=== PATIENT | female | born 1955 | race Caucasian/White ===

== ENCOUNTER → 2016-07-04 | Outpatient (REF) ==
--- NOTE | 2016-07-05 02:56 | REP ---
Clinical: Pain and disability. Technique: AP, lateral, and coned-down views of the lumbosacral spine. Findings: Age-related osteopenia and moderate multilevel degenerative changes include endplate sclerosis with disc space narrowing and hypertrophic facet changes. Findings are most pronounced at the L5-S1 level as well as the L3-4 level. No acute fracture / compression injury or subluxation appreciated. Impression: Moderate multilevel degenerative changes. Signed by Ernie Turner MD 07/05/2016 02:47 A
== END ==
LOC: M SMT 10:44
PROVIDERS: ATTEND Internal Medicine
DX: Z02.71 Encounter for disability determination (principal)

== ENCOUNTER → 2016-10-26 | Outpatient (RCR) | payer BC | LOC: M PR 10-02 08:20 | PROVIDERS: ATTEND Internal Medicine Pulmonary Disease | DX: Z51.89 Encounter for other specified aftercare (principal); J43.2 Centrilobular emphysema ==

== ENCOUNTER 2016-11-02 15:27 | Outpatient (RCR) | payer BC | END 2016-11-25 | LOC: M PR 15:27 | PROVIDERS: ATTEND Internal Medicine Pulmonary Disease | DX: Z51.89 Encounter for other specified aftercare (principal); J43.2 Centrilobular emphysema ==

== ENCOUNTER 2016-11-06 10:00 | Outpatient (RCR) | payer BC, SELFPAY | END 2016-11-25 | LOC: M CR 10:00 | PROVIDERS: ATTEND Internal Medicine Pulmonary Disease | DX: Z51.89 Encounter for other specified aftercare (principal); J43.2 Centrilobular emphysema ==

== ENCOUNTER → 2017-12-06 | Outpatient (CLI) | payer BC | LOC: M SMT 14:03 | DX: R05 Cough (principal); R06.00 Dyspnea, unspecified; J44.9 Chronic obstructive pulmonary disease, unspecified; J98.4 Other disorders of lung | CPT/HCPCS: 71046 ==

== ENCOUNTER → 2018-05-09 | Outpatient (CLI) | payer BC ==
--- NOTE | 2018-05-10 02:50 | REP ---
Clinical: COPD. Technique: PA and lateral. Comparison: 12/06/2017. Findings: Lung milan demonstrate chronic stable interstitial changes. The mediastinum and cardiac silhouette are normal. Skeletal structures are intact. Evidence of prior thyroid surgery. Impression: Chronic changes related to COPD and emphysematous disease. No obvious acute process. Electronically Signed by Ernie Turner MD 05/10/2018 02:42 A
== END ==
LOC: M SMT 10:10
PROVIDERS: ATTEND Internal Medicine Pulmonary Disease
DX: J44.1 Chronic obstructive pulmonary disease with (acute) exacerbation (principal); R09.02 Hypoxemia; Z87.891 Personal history of nicotine dependence

== ENCOUNTER → 2019-01-16 | Outpatient (CLI) | payer BC ==
--- NOTE | 2019-01-16 17:25 | REP ---
Chest x-ray: Two views. History: Cough. Comparison chest x-ray: May 09, 2018. Findings: The lungs are quite hyperinflated consistent with COPD as before. There is linear fibrosis in the right lower lobe. There is plate-like atelectasis versus linear fibrosis in the lingular segment of the left upper lobe. This is new when compared with the May 09, 2018 study favoring atelectasis. No acute infiltrate is seen. There is an old healed rib fracture on the right. Heart is not enlarged. There are surgical clips in the soft tissues of the neck bilaterally unchanged. Impression: Hyperinflation consistent with COPD. Right base linear fibrosis. Lingular plate-like atelectasis versus scarring. No definite focal infiltrate. Electronically Signed by Deandre Narayan MD 01/16/2019 05:16 P
== END ==
LOC: M ADAMS 16:34
PROVIDERS: ATTEND Physician Assistant
DX: R91.8 Other nonspecific abnormal finding of lung field (principal); J84.10 Pulmonary fibrosis, unspecified

== ENCOUNTER → 2019-01-20 | Outpatient (CLI) | payer BC ==
--- NOTE | 2019-01-20 13:57 | REP ---
Clinical: History of chronic obstructive pulmonary disease with acute exacerbation. Technique: PA and lateral. Comparison: 01/16/2019. Findings: Diffuse chronic COPD and emphysematous changes with scattered fibrosis and scarring noted. No focal consolidation. No effusion. No pneumothorax. Cardiac silhouette is normal. Skeletal structures intact. Impression: Advanced COPD/emphysematous changes. No focal consolidation. Electronically Signed by Ernie Turner MD 01/20/2019 01:49 P
== END ==
LOC: M ADAMS 13:15
PROVIDERS: ATTEND Physician Assistant
DX: J44.0 Chronic obstructive pulmonary disease with (acute) lower respiratory infection (principal)

== ENCOUNTER → 2019-01-20 | Outpatient (REF) | payer BC | LOC: M LAB REF 16:39 | PROVIDERS: ATTEND Physician Assistant | DX: J44.0 Chronic obstructive pulmonary disease with (acute) lower respiratory infection (principal); R05 Cough; R50.9 Fever, unspecified ==

== ENCOUNTER → 2019-01-20 | Outpatient (CLI) | payer BC ==
[2019-01-20 14:36] LABS: BASO # 0.1 10^3/uL (0.0-0.2); BASO % 0.8 % (0.0-1.0); EOS # 0.1 10^3/uL (0.0-0.5); EOS % 0.9 % (0.0-3.0); HEMATOCRIT 39.3 % (36.0-47.0); HEMOGLOBIN 13.2 g/dl (12.0-15.5); LYMPH # 1.6 10^3/uL (1.5-5.0); LYMPH % 18.3 % (24.0-44.0); MEAN CORPUSCULAR HEMOGLOBIN 30.5 pg (27.0-33.0); MEAN CORPUSCULAR HGB CONC 33.6 g/dl (32.0-36.5); MEAN CORPUSCULAR VOLUME 90.8 fl (80.0-96.0); MONO # 1.3 10^3/uL (0.0-0.8); MONO % 14.8 % (0.0-5.0); NEUTROPHILS # 5.4 10^3/uL (1.5-8.5); NEUTROPHILS % 64.1 % (36.0-66.0); PLATELET COUNT, AUTOMATED 365 10^3/uL (150-450); RED BLOOD COUNT 4.33 10^6/uL (4.00-5.40); WHITE BLOOD COUNT 8.5 10^3/uL (4.0-10.0)
== END ==
LOC: M LABDRWAD 13:18
PROVIDERS: ATTEND Physician Assistant
DX: J18.9 Pneumonia, unspecified organism (principal)

== ENCOUNTER → 2019-07-29 | Outpatient (CLI) | payer MEDICARE ==
--- NOTE | 2019-07-29 16:50 | REP ---
REASON FOR EXAM: Followup. All priors are reviewed, the latest 02/06/2019. The mediastinum and pulmonary carmen are unchanged. There are no pleural or pericardial effusions. The imaged osseous structures and imaged upper abdomen are unchanged. Evaluation of the lung milan again shows lung field hyperexpansion and chronic scattered asymmetric densities. The opacities seen previously in the left lower lobe have resolved. There is a new wedge-shaped opacity in the inferior right middle lobe with air bronchograms. There are no new nodules. There is cylindrical bronchiectasis, status quo. IMPRESSION: 1. Chronic lung field changes, as described above. 2. Improved asymmetric and patchy left lower lobe opacities. 3. New wedge-shaped right middle lobe opacity, as described above, likely representing subsegmental atelectasis. 4. Other findings as described above. Electronically Signed by Dhruv Jenkins DO 07/30/2019 11:18 A
== END ==
LOC: M RAD 14:12
PROVIDERS: ATTEND Internal Medicine Pulmonary Disease
DX: R91.8 Other nonspecific abnormal finding of lung field (principal); J47.9 Bronchiectasis, uncomplicated

== ENCOUNTER → 2022-01-23 | Outpatient (CLI) | payer MEDICARE | LOC: M PLARAD 08:33 | PROVIDERS: ATTEND Internal Medicine Pulmonary Disease | DX: R91.1 Solitary pulmonary nodule (principal) | CPT/HCPCS: 78815; A9552 ==

== ENCOUNTER → 2024-04-02 | Outpatient (CLI) | payer MEDICARE | LOC: M PLAIMG 09:19 | PROVIDERS: ATTEND Internal Medicine Pulmonary Disease | DX: R05.9 Cough, unspecified (principal) ==

== ENCOUNTER → 2024-04-29 | Outpatient (CLI) | payer MEDICARE | LOC: M PLAIMG 10:25 | PROVIDERS: ATTEND Internal Medicine Pulmonary Disease | DX: R91.8 Other nonspecific abnormal finding of lung field (principal) ==

== ENCOUNTER → 2024-09-18 | Outpatient (CLI) | payer MEDICARE | LOC: M PLAIMG 08:38 | PROVIDERS: ATTEND Internal Medicine Pulmonary Disease | DX: R91.8 Other nonspecific abnormal finding of lung field (principal) ==

== ENCOUNTER → 2024-09-18 | Outpatient (CLI) | payer MEDICARE | LOC: M WHC 08:36 | DX: Z13.820 Encounter for screening for osteoporosis (principal); M85.88 Other specified disorders of bone density and structure, other site; M85.851 Other specified disorders of bone density and structure, right thigh; M85.852 Other specified disorders of bone density and structure, left thigh ==